=== PATIENT | female | born 1985 | race American Indian/Alaskan Native ===

== ENCOUNTER 2017-12-19 20:07 | Emergency (ER) | payer MEDICAID ==
[2017-12-19 20:49] VITALS: RESP 20; O2SAT 99
[2017-12-19 20:58] LABS: HCG,QUALITATIVE URINE POSITIVE (NEGATIVE)
[2017-12-19 21:04] LABS: SQUAMOUS EPITHIAL 10 /hpf (0-5); URINE AMORPHOUS SEDIMENT MODERATE /ul (<OCC); URINE BILIRUBIN NEGATIVE (NEGATIVE); URINE BLOOD NEGATIVE (NEGATIVE); URINE CLARITY Hazy (Clear); URINE COLOR Yellow (YELLOW); URINE GLUCOSE (UA) NORMAL (Normal); URINE LEUKOCYTE ESTERASE 3+ Leu/uL (Negative); URINE NITRATE NEGATIVE (NEGATIVE); URINE PROTEIN NEGATIVE (NEGATIVE); URINE UROBILINOGEN NORMAL mg/dL (0.2-1.0)
[2017-12-19] MEDS ORDERED: Sodium Chloride 0.9% 1,000 ML IV ONE (21:05)
--- NOTE | 2017-12-19 21:07 | C.PDOC ---
History Of Present Illness 32 year old female who is currently presents to the ED for evaluation of headache associated with nausea and vomiting since earlier this evening. Patient reports lower abdominal pain and dysuria. She notes that she had vaginal spotting yesterday which has since resolved. Patient unsure of LMP. Chief Complaint (Nursing): Abdominal Pain History Per: Patient History/Exam Limitations: no limitations Onset/Duration Of Symptoms: Hrs Current Symptoms Are (Timing): Still Present Location Of Pain/Discomfort: Other (Lower ) Radiation Of Pain To:: None Associated Symptoms: Nausea, Vomiting, Urinary Symptoms Recent travel outside of the [place]: No Last Menstral Period: Unsure Past Medical History Reviewed: Historical Data, Nursing Documentation, Vital Signs Vital Signs: Last Vital Signs Temp 98.7 F 12/19/17 23:46 Pulse 94 H 12/19/17 23:46 Resp 20 12/19/17 23:46 BP 102/67 12/19/17 23:46 Pulse Ox 99 12/20/17 02:25 Family History: States: No Known Family Hx - Social History Hx Alcohol Use: Yes Hx Substance Use: No (denies) - Immunization History Hx Tetanus Toxoid Vaccination: No Hx Influenza Vaccination: No Hx Pneumococcal Vaccination: No Review Of Systems Except As Marked, All Systems Reviewed And Found Negative. Constitutional: Negative for: Fever, Chills ENT: Negative for: Ear Pain, Throat Pain Cardiovascular: Negative for: Chest Pain Respiratory: Negative for: Cough, Shortness of Breath Gastrointestinal: Positive for: Nausea, Vomiting, Abdominal Pain. Negative for : Diarrhea Genitourinary: Positive for: Dysuria, Vaginal Bleeding (resolved ), Other ( ) Skin: Negative for: Rash Neurological: Positive for: Headache. Negative for: Weakness, Numbness Physical Exam - Physical Exam Appears: Well, Non-toxic, No Acute Distress Skin: Normal Color, Warm, Dry Head: Atraumatic, Normacephalic Eye(s): bilateral: Normal Inspection, PERRL, EOMI Oral Mucosa: Moist Throat: Normal Neck: Normal, Normal ROM, Supple Chest: Symmetrical Cardiovascular: Rhythm Regular (Rate Regular ) Respiratory: Normal Breath Sounds, No Rales, No Rhonchi, No Wheezing Gastrointestinal/Abdominal: Normal Exam, Soft, No Tenderness, No Guarding, No Rebound Back: Normal Inspection Extremity: Normal ROM, No Deformity Extremity: Bilateral: Atraumatic Neurological/Psych: Oriented x3, Normal Speech, Normal Motor, Normal Sensation Gait: Steady ED Course And Treatment - Laboratory Results Result Diagrams: 12/19/17 21:33 12/19/17 21:33 O2 Sat by Pulse Oximetry: 99 Disposition Counseled Patient/Family Regarding: Diagnosis - Disposition Referrals: [facility] at [facility] [Outside] Disposition: HOME/ ROUTINE Disposition Time: : Condition: STABLE Prescriptions: Nitrofurantoin Macrocrystals [Macrobid] 1 cap PO BID #14 cap Instructions: Urinary Tract Infections in Adults, Threatened Miscarriage Forms: [facility] (Mongolian), Gen Discharge Inst French - POA Present On Arrival: None - Clinical Impression Clinical Impression: Urinary tract infection affecting , Threatened - Scribe Statement The provider has reviewed the documentation as recorded by the Scribe (Loyd Potter) Provider Attestation: 32 year old female who is currently presents to the ED for evaluation of headache associated with nausea and vomiting since earlier this evening. Patient reports lower abdominal pain and dysuria. She notes that she had vaginal spotting yesterday which has since resolved. Patient unsure of LMP.
[2017-12-19] MEDS ORDERED: Sodium Chloride 0.9% 1,000 ML ONE ×3 (21:36→23:34)
[2017-12-19 21:40] LABS: BASO % 0.3 % (0.0-2.0); EOS % 0.3 % (0.0-4.0); HEMOGLOBIN 13.1 g/dL (11.0-16.0); LYMPH # 1.6 K/uL (1.0-4.3); LYMPH % 10.5 % (20.0-40.0); MEAN CELL VOLUME 87.1 fL (81.0-99.0); MEAN CORPUSCULAR HEMOGLOBIN 28.7 pg (27.0-31.0); MEAN CORPUSCULAR HGB CONC 32.9 g/dL (33.0-37.0); MEAN PLATELET VOLUME 9.8 fL (7.2-11.7); MONO # 0.8 K/uL (0.0-0.8); MONO % 5.6 % (0.0-10.0); NEUT # 12.5 K/uL (1.8-7.0); NEUT % 83.3 % (50.0-75.0); NRBC % 0.1 % (0.0-2.0); RBC 4.58 Mil/uL (3.80-5.20); RED CELL DISTRIBUTION WIDTH 14.4 % (11.5-14.5)
[2017-12-19 21:50] LABS: ALB/GLOB RATIO 1.2 (1.0-2.1); ALBUMIN 4.1 g/dL (3.5-5.0); ALT/SGPT 18 U/L (9-52); AST/SGOT 22 U/L (14-36); BLOOD UREA NITROGEN 9 mg/dL (7-17); CALCIUM 9.6 mg/dl (8.6-10.4); GFR AFRICAN-AMERICAN > 60; GFR NON-AFRICAN AMERICAN > 60
[2017-12-19] MEDS ORDERED: cefTRIAXone IV 1 gm in Dextros 50 ML IVPB ONE ×2 (22:30→23:34)
--- NOTE | 2017-12-20 01:54 | US ---
EXAM: US First Trimester, Transabdominal EXAM DATE/TIME: 12/20/2017 1:00 AM CLINICAL HISTORY: 32 years old, female; Signs and symptoms; Lmp or gestational age (in weeks): Unknown LMP Antepartum complications; Bleeding; ; Additional info: Spotting TECHNIQUE: Real-time transabdominal obstetrical ultrasound of the maternal pelvis and a first trimester with image documentation. COMPARISON: There are no prior studies for comparison. FINDINGS: Gestation:There is a single living intrauterine gestation. There is a heart rate of 150 beats per minute. Lueders-rump length measures approximately 7 cm. There is a millimeter yolk sac. Placenta is anterior. There is no previa. Amniotic volume appears normal. Placenta/amniotic fluid: See above Uterus/cervix: Uterus measures approximately 13.4 x 7.9 x 7.8 cm. mass. Ovaries: Right ovary measures approximately 2.7 x 2.2 x 2.6 cm. Left ovary measures approximately 3.3 x 2.5 x 2.6 cm. There is flow in both ovaries on Doppler imaging. IMPRESSION: 13 week 1 day single living intrauterine gestation, estimated date of delivery 06/26/18
[2017-12-20 02:32] VITALS: BP 123/74; PULSE 75; TEMP 98.2
== END 2017-12-20 02:46 | disposition home or self-care (01) ==
LOC: C.ER 20:07
DX: O23.41 Unspecified infection of urinary tract in pregnancy, first trimester (principal); Z3A.13 13 weeks gestation of pregnancy; O20.0 Threatened abortion
CPT/HCPCS: 76801; 80053; 81001; 84702; 84703; 85025; 86850; 86900; 96365; 99285; J0696; J7040